=== PATIENT | male | born 1965 | race Caucasian/White ===

== ENCOUNTER 2022-01-21 11:32 | Observation (INO) | payer OTHER, SELFPAY ==
[2022-01-21] VITALS (10 sets, daily range): BP systolic 148–184; BP diastolic 89–111; PULSE 67–102; RESP 11–21; TEMP 37; O2SAT 98–99; BMI 25.7
--- NOTE | 2022-01-21 11:39 | ECG_ITS ---
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 Measurements Intervals [place] Rate: 66 P: 54 AK: 139 QRS: 62 QRSD: 93 T: 39 QT: 374 QTc: 394 Interpretive Statements SINUS RHYTHM No previous ECG available for comparison Electronically Signed On 01-21-2022 18:08:43 CDT by Stephan Hebert M.D. [id number]
--- NOTE | 2022-01-21 11:39 | XR_ITS ---
WS: [id number] XR chest 1V portable [id number] REASON FOR EXAM: Chest Pain FINDINGS: Mild tortuosity the thoracic aorta. Mild cardiomegaly. Calcified granulomatous disease in both hemithoraces. No acute pulmonary parenchymal or pleural abnormality. Significant degenerative spondylosis in the mid and lower thoracic spine. XR/XR chest 1V portable [id number] IMPRESSION: No acute chest abnormality.
[2022-01-21 12:04] LABS: Basophils % 0.3 %; Eosinophils # 0.1 10^3/uL (0.0-0.8); Eosinophils % 1.3 %; Hematocrit 44.4 % (42.0-52.0); Hemoglobin 14.9 g/dL (11.7-16.6); Lymphocytes # 1.5 10^3/uL (0.8-4.8); Lymphocytes % 20.1 %; Mean Corpuscular HGB Conc 33.6 g/dL (30.0-36.0); Mean Corpuscular Hemoglobin 29.2 pg (28.0-34.0); Mean Corpuscular Volume 86.9 fl (80-94); Mean Platelet Volume 9.7 fL (7.4-10.4); Monocytes # 0.7 10^3/uL (0.2-0.9); Monocytes % 9.7 %; Nucleated Red Blood Cells % 0 %; Platelet Count 155 10^3/cmm (130-400); Red Blood Count 5.11 10^6/uL (4.1-5.3); Red Cell Distribution Width 12.6 % (12.1-15.1); White Blood Count 7.2 10^3/uL (4.0-10.0)
--- NOTE | 2022-01-21 12:32 | ED_ITS ---
HPI - General Adult General: Chief complaint: Chest Pain Stated complaint: Chest pain Time Seen by Provider: 01/21/22 12:24 History of Present Illness: Patient is a 56-year-old male with no significant past medical history presents the emergency room for evaluation of chest pain since yesterday. Patient is me that since noon yesterday he has had been intermittent achy chest pain with shortness of breath. Patient says that in addition he has had radiation to the throat and left arm. Patient report that the chest pain was constant yesterday throughout the day since noon. Earlier today patient has had intermittent episodes of chest pain lasting for few minutes at a time. 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 Patient denies any any sharp knife stab pain. Patient denies the chest pain is pleuritic. Denies any fever/chills, cough, runny nose sore throat, leg swe lling, recent immobilization or surgery previous history of VTE's. Patient has no family history of aorta pathologies. Patient reports that his father had heart attack in his 60s. Patient denies any history of smoking or any sympathomimetic use. Onset:yesterday at noon Duration:ongoing intermittent Location:home Severity:moderate Associated symptoms: Reports chest pain and dyspnea; Deny nausea, rash, palpitations or vomiting Review of Systems Const: Denies: fever(s) or chills Eyes: Denies: change in vision ENMT: Denies: mouth pain Card: Reports: chest pain; Denies: palpitations Resp: Reports: dyspnea; Denies: non-productive cough GI: Denies: abdominal pain, nausea, vomiting or diarrhea : Denies: dysuria Musc: Denies: extremity pain Skin/Breast: Denies: rash or new lesions Neuro: Denies: weakness in extremities Psych: Reports: other (Normal mood) Mario/Lymph: Denies: easy bruising PFSH ED PFSH: Medical History No pertinent past medical history Surgical History No pertinent past surgical history Family History Father [place] (myocardial infarction) Social History Smoking and tobacco status: never smoked Alcohol intake: never Lives independently: Yes Current occupational status: employed Physical Exam Const: COMMON NORMALS: alert HENMT: COMMON NORMALS: atraumatic HEAD & SCALP: atraumatic MOUTH: moist mucous membranes not abnormal Eye: COMMON NORMALS: EOMs intact bilaterally and conjunctivae normal CONJUNCTIVA: Yes conjunctivae normal Neck/C-Spine: COMMON NORMALS: full ROM and supple Resp: COMMON NORMALS: normal respiratory effort and clear to auscultation bilaterally AUSCULTATION: clear to auscultation bilaterally Cardio: COMMON NORMALS: regular rate RATE: regular rate OTHER: 2+ radial pulses b/l GI: COMMON NORMALS: Soft to palpation and non-tender PALPATION: Yes Soft to palpation OTHER: No focal TTP. NO guarding rebound, guarding, rigidity. No CVA tenderness to percussion. Neg [place]/Neg McBurney's point tenderness, no suprabupic tenderness to palpation. Extremity: COMMON NORMALS: full ROM OTHER: No lower extremity edema Neuro: SENSORIUM/ORIENTATION: Yes alert MOTOR EXAM: No Abnormal motor strength present and Other motor observations present (no focal motor deficits) Psych: COMMON NORMALS: speech normal SPEECH: Yes normal speech MOOD & AFFECT: Yes euthymic mood Course Vital Signs: Vital signs: Vital Signs Temperature 98.1 F 01/22/22 14:45 Pulse Rate 75 01/22/22 14:45 Respiratory Rate 16 01/22/22 14:45 Blood Pressure 134/67 01/22/22 14:45 Pulse Oximetry 94 01/22/22 14:45 Oxygen Delivery Me thod 01/22/22 11:37 [facility] - General Adult Medical Decision Making Patient is a 56-year-old male with no significant past medical history presents the emergency room for evaluation of chest pain since yesterday. Patient is currently chest pain-free. On exam, patient hemodynamically stable with no focal findings. EKG does not show any signs of ischemia currently. Patient received aspirin in the ER. Troponin x2 within normal limit. EKG wnl. X-ray chest appears to be clear. Patient has a heart score greater than 4, will be mid hospital for further work-up of chest pain. Disposition: admission Lab Data : 01/22/22 04:15 01/22/22 04:15 Radiology Impressions Chest X-Ray 01/21/22 11:39 IMPRESSION: No acute chest abnormality. Laboratory Results WBC 7.2 10^3/uL (4.0-10.0) 01/21/22 11:55 RBC 5.11 10^6/uL (4.1-5.3) 01/21/22 11:55 Hgb 14.9 g/dL (11.7-16.6) 01/21/22 11:55 Hct 44.4 % (42.0-52.0) 01/21/22 11:55 MCV 86.9 fl (80-94) 01/21/22 11:55 MCH 29.2 pg (28.0-34.0) 01/21/22 11:55 MCHC 33.6 g/dL (30.0-36.0) 01/21/22 11:55 RDW 12.6 % (12.1-15.1) 01/21/22 11:55 Plt Count 155 10^3/cmm (130-400) 01/21/22 11:55 MPV 9.7 fL (7.4-10.4) 01/21/22 11:55 Neut % (Auto) 68.0 % 01/21/22 11:55 Lymph % (Auto) 20.1 % 01/21/22 11:55 [place] % (Auto) 9.7 % 01/21/22 11:55 Eos % (Auto) 1.3 % 01/21/22 11:55 Baso % (Auto) 0.3 % 01/21/22 11:55 Neut # (Auto) 4.90 10^3/uL (1.8-7.7) 01/21/22 11:55 Lymph # (Auto) 1.5 10^3/uL (0.8-4.8) 01/21/22 11:55 [place] # (Auto) 0.7 10^3/uL (0.2-0.9) 01/21/22 11:55 Eos # (Auto) 0.1 10^3/uL (0.0-0.8) 01/21/22 11:55 Baso # (Auto) 0.0 10^3/uL (0.0-0.1) 01/21/22 11:55 Nucleated RBC % (auto) 0 % 01/21/22 11:55 Nucleated RBCs # 0.0 /100WBC 01/21/22 11:55 D-Dimer 0.35 ug/mIFEU (0-0.59) 01/21/22 11:55 Sodium 140 mmol/L (136-145) 01/21/22 11:55 Potassium 4.2 mmol/L (3.5-5.1) 01/21/22 11:55 Chloride 102 mmol/L (98-107) 01/21/22 11:55 Carbon Dioxide 27 mmol/L (22-29) 01/21/22 11:55 Anion Gap 15.2 (5-19) 01/21/22 11:55 BUN 12 mg/dL (6-20) 01/21/22 11:55 Creatinine 1.0 mg/dL (0.7-1.2) 01/21/22 11:55 GFR Calculation 76.7 mL/min (90-130) L 01/21/22 11:55 Glucose 90 mg/dL (65-115) 01/21/22 11:55 Calculated Osmolality 289 mOsm/kg (285-295) 01/21/22 11:55 Calcium 9.2 mg/dL (8.5-10.5) 01/21/22 11:55 Total Bilirubin 1.0 mg/dL (0.15-1.2) 01/21/22 11:55 AST 65 U/L (0-40) H 01/21/22 11:55 ALT 25 U/L (0-41) 01/21/22 11:55 Alkaline Phosphatase 69 U/L (40-130) 01/21/22 11:55 Creatine Kinase 102 U/L (39-308) 01/21/22 17:12 Troponin T Baseline 10 ng/L (0-15) 01/21/22 11:55 Troponin T 120 Minute 8.88 ng/L (0-15) 01/21/22 14:05 Delta Troponin T -1.12 ABS# (0-10) L 01/21/22 14:05 Troponin T Hi Sens 6Hr 9.54 ng/L (0-15) 01/21/22 17:12 Troponin T Hi Sens 6Hr Delta -0.46 ng/L (0-12) L 01/21/22 17:12 Total Protein 7.3 g/dL (6.6-8.7) 01/21/22 11:55 Albumin 4.5 g/dL (3.5-5.2) 01/21/22 11:55 Globulin 2.8 g/dL (1.3-4.6) 01/21/22 11:55 Imaging Data Other Imaging: Radiologist's impression: [address] [address] XRay Report Signed Patient: Herb Zavala Unit #: [id number] : 1965 Age/Sex: 56 / M ADM Date: 01/21/22 Loc: ER Room/Bed: Attending Dr: Ordering Provider/Ordering MD: Ray Hoover DO Date of Service: 01/21/22 Procedure(s): XR chest 1V portable [id number] Accession Number(s): [id number] Report Number: [id number] WS: [id number] XR chest 1V portable [id number] REASON FOR EXAM: Chest Pain FINDINGS: Mild tortuosity the thoracic aorta. Mild cardiomegaly. Calcified granulomatous disease in both hemithoraces. No acute pulmonary parenchymal or pleural abnormality. Significant degenerative spondylosis in the mid and lower thoracic spine. XR/XR chest 1V portable [id number] IMPRESSION: No acute chest abnormality. ? ? Dictated By: Papa Greer Jr, MD Signed By: Papa Greer Jr, MD Signed Date/Time: 01/21/221226 DD/ 1223 Discharge Plan Discharge Patient Disposition: Admitted As Inpatient Admit Provider: Dionicio Blanco Clinical Impression: Chest pain Condition: Stable Discharge Diet: Cardiac Discharge Activity: Increase activity as tolerated Coding Level of Care Code ED Hand Scudder for Chg Fwd Exam Comprehensive
[2022-01-21 12:43] LABS: Troponin(5th) Baseline 10 ng/L (0-15)
[2022-01-21 12:45] LABS: Alanine Aminotransferase 25 U/L (0-41); Albumin Level 4.5 g/dL (3.5-5.2); Alkaline Phosphatase 69 U/L (40-130); Anion Gap 15.2 (5-19); Aspartate Amino Transferase 65 U/L (0-40); Blood Urea Nitrogen 12 mg/dL (6-20); Calcium 9.2 mg/dL (8.5-10.5); Carbon Dioxide 27 mmol/L (22-29); Chloride 102 mmol/L (98-107); Globulin 2.8 g/dL (1.3-4.6); Glomerular Filtration Rate 76.7 mL/min (90-130); Glucose 90 mg/dL (65-115); Osmolality Calculated 289 mOsm/kg (285-295); Potassium 4.2 mmol/L (3.5-5.1); Sodium 140 mmol/L (136-145); Total Protein 7.3 g/dL (6.6-8.7)
[2022-01-21] MEDS: aspirin 325 mg Tablet PO (13:07)
--- NOTE | 2022-01-21 13:39 | ECG_ITS ---
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 Measurements Intervals [place] Rate: 63 P: 60 SC: 166 QRS: 65 QRSD: 97 T: 39 QT: 383 QTc: 392 Interpretive Statements SINUS RHYTHM Compared to ECG 01/21/2022 11:43:55 No significant changes Electronically Signed On 01-21-2022 18:12:36 CDT by Stephan Hebert M.D. [id number]
[2022-01-21 14:38] LABS: Troponin 5 2HR 8.88 ng/L (0-15)
[2022-01-21 14:44] LABS: Troponin 5 2HR Delta -1.12 ABS# (0-10)
[2022-01-21 15:55] LABS: D Dimer 0.35 ug/mIFEU (0-0.59)
--- NOTE | 2022-01-21 16:01 | P.HP_ITS ---
Providers/Chief Complaint Primary Care Provider: Brian Allen MD Chief Complaint: Chest pain History of Present Illness Pleasant 56-year-old gentleman without much significant past medical history, presents due to multiple episodes of chest pain discomfort, somewhat changing in quality and location, yesterday left side of the chest, radiating to his left shoulder/arm, dull, achy, this morning more in lower chest like a band, making it difficult for him to take a deep breath, then later in the upper chest, yesterday some reproducibility with palpation, deep inspiration, not so much today. Denies any cough. Has developed shortness of breath episode today while driving to work in his car. Did not necessarily notice reproducibility with activity. States that he was moving his boat on Friday. Denies any orthopnea or LE swelling. No recent immobilization. Denies any recent viral-like illness. In ER noted elevated blood pressure. His father had an MD in his 60s. Review of Systems Const: Denies: fever(s), chills, body aches or malaise Eyes: Denies: change in vision, eye discomfort or eye redness ENMT: Denies: throat pain, oral sores or ear or mastoid pain Card: Reports: chest pain; Denies: edema or pre-syncope Resp: Reports: dyspnea (intermittent); Denies: productive cough, change in phlegm color or hemoptysis GI: Denies: abdominal pain, nausea, vomiting, diarrhea, constipation, hematochezia or melena : Denies: flank pain, difficulty urinating, urinary frequency or hematuria Musc: Denies: back pain, joint swelling or joint redness Skin/Breast: Denies: rash or new lesions Neuro: Denies: headache(s), numbness in extremities, weakness in extremities, dizziness, confusion or seizure-like activity Endo: Denies: polyuria or polydipsia Mario/Lymph: Denies: easy bleeding or tender lymph nodes All/Imm: Denies: urticaria or tongue swelling Medications/Allergies Home Medications Medication Instructions Recorded Confirmed Last Taken Type aspirin 81 mg chewable tablet 81 mg PO DAILY 01/21/22 01/21/22 01/21/22 History ibuprofen 200 mg tablet 400 mg PO DAILY PRN Pain 01/21/22 01/21/22 01/21/22 His tory irbesartan 75 mg tablet 75 mg PO DAILY 01/21/22 01/21/22 01/21/22 History omeprazole 20 mg capsule,delayed 20 mg PO DAILY 01/21/22 01/21/22 01/21/22 History release tadalafil 20 mg tablet 20 mg PO DAILY PRN prn 01/21/22 01/21/22 Unknown History valacyclovir 1 gram tablet 2,000 mg PO BID PRN Onset of sores 01/21/22 01/21/22 Unknown History Allergies Allergy/AdvReac Type Severity Reaction Status Date / Time No Known Allergies Allergy Unverified 01/21/22 14:31 PFSH Acute PFSH: Medical History No pertinent past medical history Surgical History No pertinent past surgical history Family History Father [place] (myocardial infarction) Social History Smoking and tobacco status: never smoked Alcohol intake: never Substance/Drug Use: never Lives independently: Yes Current occupational status: employed Vitals/I&O/Wt Last Vital Signs Temp 98.6 F 01/21/22 11:33 Pulse 84 01/21/22 13:08 Resp 21 H 01/21/22 13:08 BP 148/97 01/21/22 13:08 Pulse Ox 98 01/21/22 13:08 O2 Del Method 01/21/22 13:08 Weight last 48 hrs Weight 83.915 kg Physical Exam Const: COMMON NORMALS: patient oriented x3 and alert GENERAL APPEARANCE: cooperative ORIENTATION/CONSCIOUSNESS: Yes awake HENMT: COMMON NORMALS: oropharynx normal Neck/C-Spine: COMMON NORMALS: no JVD Resp: COMMON NORMALS: normal respiratory effort and clear to auscultation bilaterally AUSCULTATION: clear to auscultation bilaterally Cardio: COMMON NORMALS: no JVD, regular rhythm, S1 normal heart sound present, S2 normal heart sound present and No murmurs present (Cardio) RHYTHM: regular rhythm HEART SOUNDS: S1 normal heart sound present and S2 normal heart sound present GI: COMMON NORMALS: Normal to inspection, nondistended, normoactive bowel sounds present, Soft to palpation and non-tender PALPATION: Yes Soft to palpation Extremity: COMMON NORMALS: no joint enlargement and no pedal edema Neuro: COMMON NORMALS: patient oriented x3 and moves all extremities SENSORIUM/ORIENTATION: Yes alert Skin: COMMON NORMALS: no rashes or lesions noted GENERAL SKIN EXAM: no rashes or lesions noted Data : 01/21/22 11:55 01/21/22 11:55 A&P Assessment and plan (1) Chest pain: Not typical chest pain today, but indicates he did have chest pain in the left chest, left shoulder yesterday, although with some reproducibility to palpation. He does have family history of MD in his father in his 60s. History of hypertension. Troponin and EKG not suggestive of acute MD. Currently pain- free. No recent immobilization, no viral-like illness. D-dimer obtained, normal. Low probability PE. Mild elevation in AST. Check CK. Discussed with him moderate cardiac risk, consideration of further assessment, which he prefers to proceed with including TTE and stress test in the morning. Discussed with him otherwise possible musculoskeletal pain after moving his boat given some atypical features, reproducibility. Chest x-ray without acute abnormality. Status: Acute (2) HTN (hypertension): Pressure elevated in ER. Continue irbesartan. Cardiac diet. Monitor blood pressures. Status: Acute Attestations Medical Necessity Statement*: Place in observation for additional assessment and management of recurrent chest pain gentleman with moderate risk for major cardiac events. Coding Level of Care Code Acute Project Intern for Chanel Juarez Diagnoses Chest pain R07.9 HTN (hypertension) I10
--- NOTE | 2022-01-21 16:12 | USCV_ITS ---
Herb Zavala Age: 56 Gender: M : 1965 Exam Date: 01/21/2022 18:33 Ordering Phys: Dionicio Blanco MD Technologist: CUONG Exam Location[place] [facility] [place] Indication: chest pain x 2 days. BP: 148 / 97 HR: 84 Rhythm: Sinus Technical Quality: Adequate MEASUREMENTS (Male / Female) Normal Values 2D ECHO LV Diastolic Diameter PLAX 3.9 cm 4.2 - 5.9 / 3.9 - 5.3 cm LV Systolic Diameter PLAX 2.5 cm IVS Diastolic Thickness 1.7 cm 0.6 - 1.0 / 0.6 - 0.9 cm IVS Systolic Thickness 1.8 cm LVPW Diastolic Thickness 1.4 cm 0.6 - 1.0 / 0.6 - 0.9 cm LVPW Systolic Thickness 1.7 cm LVOT Diameter 1.8 cm LV Ejection Fraction 2D Teich 67.6 % LV Ejection Fraction MOD 2C 75.3 % LV Ejection Fraction 2C AL 76.7 % LA Diameter 4.2 cm LA Width 3.6 cm LA Height 5.3 cm RA Width 3.1 cm RA Height 4.1 cm Aorta at Sinotubular Diameter 2.8 cm M-MODE Aortic Annulus Diameter 2.7 cm LA Ao Ratio MM 1.6 MV E Point Septal Separation 0.2 cm DOPPLER AV Peak Velocity 129.0 cm/s LVOT Peak Velocity 125.0 cm/s AV Area Cont Eq vti 2.5 cm squared AV Area Cont Eq pk 2.4 cm squared MV Area PHT 4.6 cm squared Mitral E to A Ratio 1.2 MV E' Velocity 61.5 cm/s Mitral E to MV E' Ratio 8.6 Mitral E to LV E' Lateral Ratio 7.4 Mitral E to LV E' Septal Ratio 10.3 TR Peak Velocity 214.0 cm/s TR Peak Gradient 18.3 mmHg TV Peak E Velocity 70.0 cm/s Right Atrial Pressure 5.0 mmHg Pulmonary Artery Systolic Pressu 23.3 mmHg PV Peak Velocity 120.0 cm/s RV Acceleration Time 0.1 s RV Ejection Time 0.3 s RV AcT/ET 0.3 FINDINGS Left Ventricle Normal left ventricular size, systolic function and wall thickness, with no regional wall motion abnormalities. Left ventricular ejection fraction is estimated at 70 %. Normal diastolic function. Right Ventricle Normal right ventricular size and systolic function. Right ventricular systolic pressure 22 mmHg. Right Atrium Normal right atrial size. Left Atrium Normal left atrial size. Mitral Valve Structurally normal mitral valve. No mitral valve stenosis. Mild mitral valve regurgitation. Aortic Valve Structurally normal trileaflet aortic valve. No aortic valve stenosis. No aortic valve regurgitation. Tricuspid Valve Structurally normal tricuspid valve. No tricuspid valve stenosis. Trace to mild tricuspid valve regurgitation. Pulmonic Valve Pulmonic valve not well visualized. No pulmonary valve stenosis. Trace pulmonary valve regurgitation. Pericardium No pericardial effusion. Aorta Normal size aortic root and proximal ascending aorta. IVC Normal IVC dimension with >50% respiratory change of the inferior vena cava. CONCLUSIONS 1. Normal left ventricular size, systolic function and wall thickness, with no regional wall motion abnormalities. Left ventricular ejection fraction is estimated at 70 %. Normal diastolic function. 2. Normal right ventricular size and systolic function. 3. Mild mitral valve regurgitation. 4. Pulmonary artery pressure estimated at 22 mmHg. 5. No prior similar studies to compare. Sarah Hartmann MD (Electronically Signed) Final Date: 22 January 2022 10:55 S
[2022-01-21 16:42] LABS: Creatine Phosphokinase 3997 U/L (39-308)
--- NOTE | 2022-01-21 17:39 | ECG_ITS ---
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 Measurements Intervals [place] Rate: 76 P: 48 ID: [id number] QRS: 50 QRSD: 92 T: 25 QT: 356 QTc: 402 Interpretive Statements SINUS RHYTHM WITH SINUS ARRHYTHMIA Compared to ECG 01/21/2022 14:07:45 No significant changes Electronically Signed On 01-21-2022 21:52:02 CDT by Stephan Hebert M.D. [email or web address]/[facility] system[facility]/store/OM/[id number]
[2022-01-21 18:05] LABS: Troponin 5 6HR 9.54 ng/L (0-15)
[2022-01-21 18:06] LABS: Creatine Phosphokinase 102 U/L (39-308)
--- NOTE | 2022-01-21 18:09 | PC.NURSE ---
Patient remains a/o, vs remain stable, no c/o pain or other discomfort at this time, dinner tray ordered and delivered, patient to be NPO at midnight.
[2022-01-21 18:27] LABS: Troponin 5 6HR Delta -0.46 ng/L (0-12)
--- NOTE | 2022-01-21 19:26 | PC.NURSE ---
Patient report called to Gosia, patient to go to 268 when ready.
[2022-01-22] VITALS (8 sets, daily range): BP systolic 104–160; BP diastolic 67–85; PULSE 72–97; RESP 16–20; TEMP 36.7–37.8; O2SAT 94–96
[2022-01-22 05:12] LABS: Basophils % 0.3 %; Eosinophils # 0.1 10^3/uL (0.0-0.8); Eosinophils % 1.1 %; Hematocrit 41.1 % (42.0-52.0); Hemoglobin 13.7 g/dL (11.7-16.6); Lymphocytes # 1.7 10^3/uL (0.8-4.8); Lymphocytes % 24.5 %; Mean Corpuscular HGB Conc 33.3 g/dL (30.0-36.0); Mean Corpuscular Hemoglobin 28.8 pg (28.0-34.0); Mean Corpuscular Volume 86.3 fl (80-94); Mean Platelet Volume 10.6 fL (7.4-10.4); Monocytes # 0.8 10^3/uL (0.2-0.9); Neutrophils # 4.41 10^3/uL (1.8-7.7); Neutrophils % 62.7 %; Nucleated Red Blood Cells % 0 %; Platelet Count 164 10^3/cmm (130-400); Red Blood Count 4.76 10^6/uL (4.1-5.3); Red Cell Distribution Width 12.6 % (12.1-15.1)
[2022-01-22 05:41] LABS: Alanine Aminotransferase 13 U/L (0-41); Albumin Level 3.9 g/dL (3.5-5.2); Alkaline Phosphatase 57 U/L (40-130); Aspartate Amino Transferase 12 U/L (0-40); Blood Urea Nitrogen 13 mg/dL (6-20); Calcium 9.2 mg/dL (8.5-10.5); Carbon Dioxide 22 mmol/L (22-29); Chloride 103 mmol/L (98-107); Globulin 2.6 g/dL (1.3-4.6); Glomerular Filtration Rate 76.7 mL/min (90-130); Glucose 102 mg/dL (65-115); Osmolality Calculated 290 mOsm/kg (285-295); Sodium 140 mmol/L (136-145); Total Bilirubin 0.8 mg/dL (0.15-1.2); Total Protein 6.5 g/dL (6.6-8.7)
[2022-01-22 05:47] LABS: Anion Gap 19.2 (5-19); Potassium 4.2 mmol/L (3.5-5.1)
[2022-01-22] MEDS: regadenoson 0.4 Mg/5 ml Syringe IVP (07:20)
[2022-01-22] MEDS: aminophylline 25 mg/mL SDV 10 mL IVP (07:41)
--- NOTE | 2022-01-22 08:00 | ECG_ITS ---
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 Interpretive Statements NAME OF STUDY: LEXISCAN SESTAMIBI STRESS TEST INDICATION: Atypical Chest Pain PROCEDURE: At the baseline, the blood pressure was 139/84 mmHg, oxygen saturation 93% with a heart rate of 80 bpm. The electrocardiogram showed sinus tachycardia with artifact. Leftward axis. Nonspecific ST changes and biphasic T waves in inferolateral leads. The Lexiscan was infused over a period of 20 seconds. A total of 0.4 milligrams of Lexiscan was infused. The stress phase was continued for a total of 5 minutes. Heart rate at the end of the stress phase was 88 bpm, oxygen saturation 96% with a blood pressure of 98/56 mmHg. The EKG at the peak infusion revealed sinus rhythm with upright T waves in lead to 3 aVF V4 to V6. The study was terminated due to protocol completion. Sestamibi was injected 20 seconds after the Lexiscan infusion. Blood pressure at the end of the recovery phase was 159/52 mmHg, oxygen saturation 96% with a heart rate of 73 beats per minute. CONCLUSION: 1. No significant EKG changes with the LexiScan infusion. 2. No LexiScan induced chest pain or cardiac arrhythmia. 3. Normal blood pressure and heart rate response. 4. Sestamibi/sestamibi perfusion scan pending; see separate report. Electronically Signed On 01-22-2022 12:45:55 CDT by Sarah Hartmann M.D. [email or web address]aceuticalsOrchard Labsun[facility].[employer]/store/OM/[id number]
[2022-01-22] MEDS: aspirin 81 mg Chew Tablet PO (09:19)
[2022-01-22] MEDS: losartan 50 mg Tablet 25 MG PO (09:19)
--- NOTE | 2022-01-22 10:59 | PC.CHAP ---
Pastoral Care Encounter/Spiritual Assessment Type of Contact [] Declined director validation visit [] Patient/Family/Request visit [] Outpatient visit [] Follow-up visit [] Physician referral [] Code/Alert [x] Routine visit [] Staff referral [] Actively dying [] Patient sleeping [] Family support [] [] Out of room [] Palliative care [] [x] Receiving care in room [] Pre-surgical visit [] Trauma [] Long length of stay [] ICU visit [] Other: Relational/Emotional Strength [] Patient feels connected with others/family/visitors/staff [] Distress [] Loneliness/isolation [] Abandonment Spirituality of Patient [] Person of Amy [] Attends [facility] of their Amy [] Believes in Prayer [] Reads Bible or Hoahaoism materials [] There are Spiritual issues to be addressed Corrections Sergeant Interventions [] Prayer [] Active listening [] Non-anxious presence [] Spiritual/emotional support [] Crisis/trauma care [] Spiritual counseling [] Bereavement support [] Provided bereavement packet [] Provided Bible/devotional materials [] Provided toy/stuffed animal, coloring book to patient or family member [] Provided Communion [] Anointing/[place] [] Salvation [] Completed spiritual assessment [] Other: Impact on Illness or Injury [] Angry [] Fearful [] Anxious [] Often cries [] Exhaustion [] Unable to work [] Unable to attend scientology [] Unable to walk/stand [] Unable to read [] Unable to drive [] Unable to eat/drink [] Unable to sleep [] Unable to be with family [] Patient intubated [] Other: Summary Time spent with patient
--- NOTE | 2022-01-22 13:17 | PM.DCS ---
Discharge Providers Date of Admission: 01/21/22 18:57 Date of Discharge: January 22, 2022 Attending Provider at Admission: Dionicio Blanco Attending Provider at Discharge: Dionicio Blanco Primary Care Provider: Brian Allen MD Diagnoses at Discharge Discharge Diagnosis (1) Chest pain: Status: Acute (2) HTN (hypertension): Status: Acute Reason for Visit Reason for Visit: Chest pain Hospital Course Hospital Course Pleasant 56-year-old gentleman with history of hypertension, not much other past medical history, but with family history of coronary disease with his father having had an TX in his 60s, was observed in the hospital after presenting with several episodes of recurrent chest pain, somewhat atypical, multiple locations, although initially in the left side chest rating to the left side shoulder, subsequently bandlike sensation with some pain on deep inspiration in the lower chest, later in the upper chest. Troponin series nonstressed of acute TX. EKG without obvious changes suggestive of ischemia. Was noted to be hypertensive on presentation. Was assessed by echocardiogram with finding of normal EF, no R WMA, mild MVR. Was additionally assessed by stress test which showed low probability of cardiac ischemia. D-dimer was tested as well and was not elevated, he is normally active, and risk of PE was low. Chest x-ray was unremarkable. He was noted to have rhabdomyolysis, however, with initial CK of 3990. He states he was working hard moving his boat on Friday, seems he may have developed rhabdomyolysis due to this responsible for his symptoms, however, he does have risk factors of cardiovascular disease which would benefit from continued optimization, including hypertension. Please assist him with continued optimization, assessment of cholesterol, heart healthy diet and lifestyle. Physical Exam Narrative: She reports she is feeling well, he has been chest pain-free. Const: COMMON NORMALS: patient oriented x3 and alert GENERAL APPEARANCE: cooperative ORIENTATION/CONSCIOUSNESS: Yes awake HENMT: COMMON NORMALS: oropharynx normal Neck/C-Spine: COMMON NORMALS: no JVD Resp: COMMON NORMALS: normal respiratory effort and clear to auscultation bilaterally AUSCULTATION: clear to auscultation bilaterally Cardio: COMMON NORMALS: no JVD, regular rhythm, S1 normal heart sound present, S2 normal heart sound present and No murmurs present (Cardio) RHYTHM: regular rhythm HEART SOUNDS: S1 normal heart sound present and S2 normal heart sound present GI: COMMON NORMALS: Normal to inspection, nondistended, normoactive bowel sounds present, Soft to palpation and non-tender PALPATION: Yes Soft to palpation Extremity: COMMON NORMALS: no joint enlargement and no pedal edema Neuro: COMMON NORMALS: patient oriented x3 and moves all extremities SENSORIUM/ORIENTATION: Yes alert Skin: COMMON NORMALS: no rashes or lesions noted GENERAL SKIN EXAM: no rashes or lesions noted Discharge Data Studies Completed and Pending Completed Studies During Hospitalization Category Date Time Status Cardiac Stress Test MIBI [Sestamibi Stress Test Request Exams 01/22/22 08:00 Completed ] Stat XR chest 1V portable [id number] Stat Exams 01/21/22 11:39 Completed NM clover perf SPECT r/s* [id number] Routine Nuc Med 01/22/22 17:51 Completed CV. echo complete* [id number] Stat Ultrasound 01/21/22 16:12 Completed Pending at discharge Category Date Time Status Complete Blood Count w/Auto AM LABS Lab 01/23/22 04:00 Ordered Complete Blood Count w/Auto AM LABS Lab 01/24/22 04:00 Ordered Comprehensive Metabolic Panel AM LABS Lab 01/23/22 04:00 Ordered Comprehensive Metabolic Panel AM LABS Lab 01/24/22 04:00 Ordered Radiology Impressions Chest X-Ray 01/21/22 11:39 IMPRESSION: No acute chest abnormality. Laboratory Results WBC 7.0 10^3/uL (4.0-10.0) 01/22/22 04:15 RBC 4.76 10^6/uL (4.1-5.3) 01/22/22 04:15 Hgb 13.7 g/dL (11.7-16.6) 01/22/22 04:15 Hct 41.1 % (42.0-52.0) L 01/22/22 04:15 MCV 86.3 fl (80-94) 01/22/22 04:15 MCH 28.8 pg (28.0-34.0) 01/22/22 04:15 MCHC 33.3 g/dL (30.0-36.0) 01/22/22 04:15 RDW 12.6 % (12.1-15.1) 01/22/22 04:15 Plt Count 164 10^3/cmm (130-400) 01/22/22 04:15 MPV 10.6 fL (7.4-10.4) H 01/22/22 04:15 Neut % (Auto) 62.7 % 01/22/22 04:15 Lymph % (Auto) 24.5 % 01/22/22 04:15 [place] % (Auto) 11.0 % 01/22/22 04:15 Eos % (Auto) 1.1 % 01/22/22 04:15 Baso % (Auto) 0.3 % 01/22/22 04:15 Neut # (Auto) 4.41 10^3/uL (1.8-7.7) 01/22/22 04:15 Lymph # (Auto) 1.7 10^3/uL (0.8-4.8) 01/22/22 04:15 [place] # (Auto) 0.8 10^3/uL (0.2-0.9) 01/22/22 04:15 Eos # (Auto) 0.1 10^3/uL (0.0-0.8) 01/22/22 04:15 Baso # (Auto) 0.0 10^3/uL (0.0-0.1) 01/22/22 04:15 Nucleated RBC % (auto) 0 % 01/22/22 04:15 Nucleated RBCs # 0.0 /100WBC 01/22/22 04:15 D-Dimer 0.35 ug/mIFEU (0-0.59) 01/21/22 11:55 Sodium 140 mmol/L (136-145) 01/22/22 04:15 Potassium 4.2 mmol/L (3.5-5.1) 01/22/22 04:15 Chloride 103 mmol/L (98-107) 01/22/22 04:15 Carbon Dioxide 22 mmol/L (22-29) 01/22/22 04:15 Anion Gap 19.2 (5-19) H 01/22/22 04:15 BUN 13 mg/dL (6-20) 01/22/22 04:15 Creatinine 1.0 mg/dL (0.7-1.2) 01/22/22 04:15 GFR Calculation 76.7 mL/min (90-130) L 01/22/22 04:15 Glucose 102 mg/dL (65-115) 01/22/22 04:15 Calculated Osmolality 290 mOsm/kg (285-295) 01/22/22 04:15 Calcium 9.2 mg/dL (8.5-10.5) 01/22/22 04:15 Total Bilirubin 0.8 mg/dL (0.15-1.2) 01/22/22 04:15 AST 12 U/L (0-40) 01/22/22 04:15 ALT 13 U/L (0-41) 01/22/22 04:15 Alkaline Phosphatase 57 U/L (40-130) 01/22/22 04:15 Creatine Kinase 102 U/L (39-308) 01/21/22 17:12 Troponin T Baseline 10 ng/L (0-15) 01/21/22 11:55 Troponin T 120 Minute 8.88 ng/L (0-15) 01/21/22 14:05 Delta Troponin T -1.12 ABS# (0-10) L 01/21/22 14:05 Troponin T Hi Sens 6Hr 9.54 ng/L (0-15) 01/21/22 17:12 Troponin T Hi Sens 6Hr Delta -0.46 ng/L (0-12) L 01/21/22 17:12 Total Protein 6.5 g/dL (6.6-8.7) L 01/22/22 04:15 Albumin 3.9 g/dL (3.5-5.2) 01/22/22 04:15 Globulin 2.6 g/dL (1.3-4.6) 01/22/22 04:15 Vitals Last Vital Signs Temp 98.1 F 01/22/22 11:37 Pulse 75 01/22/22 11:37 Resp 16 01/22/22 11:37 BP 134/67 01/22/22 11:37 Pulse Ox 94 01/22/22 11:37 O2 Del Method 01/22/22 11:37 Discharge Plan Discharge Patient Disposition: Home Condition: Stable Prescriptions: Continued valacyclovir 1 gram tablet 2,000 mg PO BID PRN (Reason: Onset of sores) omeprazole 20 mg capsule,delayed release(DR/EC) 20 mg PO DAILY irbesartan 75 mg tablet 75 mg PO DAILY tadalafil 20 mg tablet 20 mg PO DAILY PRN (Reason: prn) aspirin 81 mg Tablet,Chewable 81 mg PO DAILY Discontinued ibuprofen 200 mg Tablet 400 mg PO DAILY PRN (Reason: Pain) Discharge Orders: Discharge Order (Routine); Ordered 01/22/22 Ordered By: Dionicio Blanco Referrals: Brian Allen MD [Primary Care Provider] - 4-7 days Discharge Diet: Cardiac Discharge Activity: Increase activity as tolerated Patient Instructions: Heart Healthy Diet (GEN), Rhabdomyolysis (GEN), Chronic Hypertension (GEN), Prevent Cardiovascular Disease (GEN), Opioid Safety Activity Restrictions/Additional Instructions: Please follow-up with your primary doctor for reassessment after episode of chest pain. Your stress test showed low probability of ischemia, with likelihood that your pain was related to a cardiac issue. Echocardiogram showed normal ejection fraction, minimal mitral regurgitation. However, you do have cardiac risk factors, due to this please continue follow-up with your primary doctor for optimization of cardiovascular risks including management of hypertension. Continue irbesartan, monitor blood pressure twice daily. Discuss additional assessment including lipid profile. Maintain heart healthy diet. Include 150 minutes moderate exercise per week. You were noted to have rhabdomyolysis, do avoid currently severe exertion, avoid dehydration which may contribute to rhabdomyolysis. Please discuss with your primary doctor. Would avoid ibuprofen or other NSAIDs due to these medications increasing cardiovascular risk. In case of recurrence of concerning chest pain, still seek medical attention. Discharge Attestations Time Spent in Discharge Care*: greater than 30 min Quality Metrics Clinical Quality Measures [ No reported AMI, CVA or VTE this stay] Coding Level of Care Code Acute Chg FW DC note Diagnoses Chest pain R07.9 HTN (hypertension) I10
--- NOTE | 2022-01-22 17:51 | NMCV_ITS ---
NM clover perf SPECT r/s* [id number] Herb Zavala Age: 56 Gender: M : 1965 Exam Date: 01/22/2022 06:51 Ordering Phys: Dionicio Blanco MD Technologist: NITHIN Byod Exam Location: [facility] Indications: CHEST PAIN STRESS TEST Please see separate stress test report in [facility] for full findings IMAGE PROTOCOL Rest/Stress 1 Lexiscan Day Radiopharmaceutical Dose (mCi) Administration Site Administered by Rest: Tc-99m 10.7 IV NITHIN Arroyo Sestamibi Stress:Tc-99m 32.8 IV NITHIN Arroyo Sestamibi Rest: 22-Jan-2022 60 Discovery 630 Stress: 22-Jan-2022 30 Discovery 630 0.4mg Lexiscan. Images obtained in supine and prone position. SPECT RESULTS Technical Quality: Excellent Raw Data Analysis: Normal Image Corrections: No attenuation or motion correction applied Summed Stress Score: 0 Summed Rest Score: 0 Summed Difference Score: 0 PERFUSION FINDINGS SPECT images demonstrate homogeneous tracer distribution throughout the myocardium. FUNCTIONAL RESULTS (calculated via Gated SPECT) Stress Image LV EF (%): 72 Stress EDV (mL):115 TID: 1.09 Stress ESV (mL):32 FUNCTIONAL FINDINGS: The left ventricle is normal in size. Transient Ischemia Dilatation of 1.1. There is normal left ventricular systolic function. The left ventricular ejection fraction is normal with a value of 72%. There is normal left ventricular wall thickening. IMPRESSIONS 1. Myocardial perfusion imaging is normal. 2. Overall left ventricular systolic function is normal without regional wall motion abnormalities, LVEF=72%. 3. No significant EKG changes with Lexiscan infusion. Refer to separate report for details. Sarah Hartmann MD (Electronically Signed) Final Date: 22 January 2022 12:58 S
== END 2022-01-22 14:49 | disposition home or self-care (01) ==
LOC: ER 16:19 → MEDSURG 18:58
PROVIDERS: Family Medicine; Admitting Provider Internal Medicine; Emergency Provider Emergency Medicine; PCP Family Medicine; Visit Provider Internal Medicine
DX: R07.9 Chest pain, unspecified (principal); I10 Essential (primary) hypertension; I34.0 Nonrheumatic mitral (valve) insufficiency; Z79.82 Long term (current) use of aspirin; Z82.49 Family history of ischemic heart disease and other diseases of the circulatory system
CPT/HCPCS: 36415; 71045; 78452; 80053; 82550; 84484; 85025; 85378; 93005; 93017; 93306; 96365; 99285; A9500; G0378; J0280; J2785